=== PATIENT | female | born 1955 | race Two or more races ===

== ENCOUNTER → 2023-05-29 | Outpatient (CLI) | payer OTHER ==
[2023-05-29 14:40] LABS: Basophils # (auto) 0 10 ^3/uL (0-0.2); Basophils % (auto) 0.7 % (0.0-2.0); Eosinophils # (auto) 0.1 10 ^3/uL (0-0.8); Eosinophils % (auto) 1.5 % (0.0-7.0); Hematocrit 42.2 % (36.0-46.0); Hemoglobin 13.8 g/dL (12.2-16.2); Lymphocytes % (auto) 22.8 % (10.0-50.0); Mean Corpuscular Hemoglobin 28.7 pg (28.0-32.0); Mean Corpuscular Hgb Conc. 32.8 g/dL (32.0-36.0); Mean Corpuscular Volume 87.5 fL (80.0-100.0); Monocytes # (auto) 0.4 10 ^3/uL (0-1.3); Monocytes % (auto) 8.3 % (0.0-12.0); Neutrophils # (auto) 2.9 10 ^3/uL (1.6-8.6); Neutrophils % (auto) 66.7 % (37.0-80.0); Nucleated Red Blood Cells % 0.1 %; Red Blood Cells 4.82 10^6/uL (4.0-5.20); Red Cell Distribution Width 14.2 % (11.8-14.3); White Blood Cell 4.3 10^3/uL (4.4-10.8)
[2023-05-29 15:12] LABS: Urine Bacteria FEW /hpf (None Seen); Urine Blood Negative /uL (Negative); Urine Clarity Clear (Clear); Urine Color Yellow (Yellow); Urine Mucus FEW (None Seen); Urine Protein, UAD Negative (Negative); Urine Specific Gravity 1.008 (1.001-1.035); Urine Urobilinogen Normal (Negative); Urine WBC 1 /hpf (0 - 5)
[2023-05-29 15:29] LABS: Alanine Aminotransferase 16 U/L (7-40); Albumin 4.4 g/dL (3.2-4.8); Alkaline Phosphatase 76 U/L (46-116); Anion Gap 7 (5-15); Aspartate Aminotransferase 17 U/L (13-40); BUN/Creatinine Ratio 7.2 (10.0-20.0); Blood Urea Nitrogen 7 mg/dL (9-23); Calcium 9.8 mg/dL (8.5-10.1); Carbon Dioxide 26 mmol/L (20-30); Chloride 109 mmol/L (98-107); Glucose 82 mg/dL (74-106); LDL Cholesterol 111 mg/dL (< 100); Potassium 3.8 mmol/L (3.5-5.1); Sodium 142 mmol/L (136-145); Triglycerides 128 mg/dL (< 150)
[2023-05-29 15:30] LABS: Bilirubin, Total 0.8 mg/dL (0.2-1.0); Cholesterol 186 mg/dL (< 200); HDL Cholesterol 58 mg/dL (40-59); Total Protein 6.6 g/dL (5.7-8.2)
[2023-05-29 15:32] LABS: Folate (Folic Acid) 19.54 ng/mL (>5.38)
[2023-05-29 16:37] LABS: Uric Acid 5.7 mg/dL (3.1-7.8)
== END | disposition home or self-care (01) ==
LOC: LAB 14:18
PROVIDERS: ATTEND Internal Medicine
DX: E61.2 Magnesium deficiency (principal); R94.6 Abnormal results of thyroid function studies; R82.998 Other abnormal findings in urine; E55.9 Vitamin D deficiency, unspecified; D51.9 Vitamin B12 deficiency anemia, unspecified; R82.79 Other abnormal findings on microbiological examination of urine; E79.0 Hyperuricemia without signs of inflammatory arthritis and tophaceous disease; R78.89 Finding of other specified substances, not normally found in blood; R68.89 Other general symptoms and signs; E78.49 Other hyperlipidemia; R73.09 Other abnormal glucose
CPT/HCPCS: 36415; 80053; 80061; 81001; 82306; 82607; 82746; 83036; 84443; 84550; 85025; 87086

== ENCOUNTER → 2023-09-05 | Outpatient (CLI) | payer OTHER ==
[2023-09-05 15:01] LABS: Urine Bacteria None Seen /hpf (None Seen)
[2023-09-05 15:08] LABS: Basophils # (auto) 0 10 ^3/uL (0-0.2); Basophils % (auto) 0.7 % (0.0-2.0); Eosinophils # (auto) 0.1 10 ^3/uL (0-0.8); Eosinophils % (auto) 1.5 % (0.0-7.0); Hematocrit 45.1 % (36.0-46.0); Hemoglobin 14.8 g/dL (12.2-16.2); Lymphocytes # (auto) 1.4 10 ^3/uL (0.4-5.4); Lymphocytes % (auto) 23.5 % (10.0-50.0); Mean Corpuscular Hemoglobin 28.6 pg (28.0-32.0); Mean Corpuscular Hgb Conc. 32.7 g/dL (32.0-36.0); Mean Corpuscular Volume 87.2 fL (80.0-100.0); Monocytes # (auto) 0.5 10 ^3/uL (0-1.3); Monocytes % (auto) 7.8 % (0.0-12.0); Neutrophils # (auto) 3.9 10 ^3/uL (1.6-8.6); Neutrophils % (auto) 66.5 % (37.0-80.0); Nucleated Red Blood Cells % 0.1 %; Red Blood Cells 5.17 10^6/uL (4.0-5.20); Red Cell Distribution Width 14.9 % (11.8-14.3); White Blood Cell 5.8 10^3/uL (4.4-10.8)
[2023-09-05 15:28] LABS: Urine Blood Negative /uL (Negative); Urine Clarity Clear (Clear); Urine Color Yellow (Yellow); Urine Mucus FEW (None Seen); Urine Protein, UAD Negative (Negative); Urine Specific Gravity 1.026 (1.001-1.035); Urine Urobilinogen Normal (Negative); Urine WBC 5 /hpf (0 - 5)
[2023-09-05 16:09] LABS: Alanine Aminotransferase 24 U/L (7-40); Albumin 4.8 g/dL (3.2-4.8); Alkaline Phosphatase 81 U/L (46-116); Anion Gap 5 (5-15); Aspartate Aminotransferase 21 U/L (13-40); Bilirubin, Total 0.8 mg/dL (0.2-1.0); Blood Urea Nitrogen 14 mg/dL (9-23); Carbon Dioxide 27 mmol/L (20-30); Chloride 106 mmol/L (98-107); Cholesterol 233 mg/dL (< 200); Glucose 93 mg/dL (74-106); HDL Cholesterol 63 mg/dL (40-59); LDL Cholesterol 135 mg/dL (< 100); Potassium 3.9 mmol/L (3.5-5.1); Sodium 138 mmol/L (136-145); Total Protein 7.1 g/dL (5.7-8.2); Triglycerides 184 mg/dL (< 150)
[2023-09-05 16:13] LABS: Folate (Folic Acid) 17.94 ng/mL (>5.38)
[2023-09-05 16:40] LABS: Uric Acid 6.1 mg/dL (3.1-7.8)
== END | disposition home or self-care (01) ==
LOC: LAB 14:51
PROVIDERS: ATTEND Internal Medicine
DX: E61.2 Magnesium deficiency (principal); E79.0 Hyperuricemia without signs of inflammatory arthritis and tophaceous disease; D51.9 Vitamin B12 deficiency anemia, unspecified; R82.90 Unspecified abnormal findings in urine; E85.9 Amyloidosis, unspecified; E78.9 Disorder of lipoprotein metabolism, unspecified; R68.89 Other general symptoms and signs; R73.09 Other abnormal glucose; E55.9 Vitamin D deficiency, unspecified; R94.6 Abnormal results of thyroid function studies; R82.991 Hypocitraturia; R82.79 Other abnormal findings on microbiological examination of urine
CPT/HCPCS: 36415; 80053; 80061; 81001; 82306; 82607; 82746; 83036; 84443; 84550; 85025; 87086

== ENCOUNTER → 2024-03-30 | Outpatient (CLI) | payer OTHER ==
[2024-03-30 13:51] LABS: Urine Bacteria None Seen /hpf (None Seen)
[2024-03-30 14:05] LABS: Urine Blood Negative /uL (Negative); Urine Clarity Clear (Clear); Urine Color Yellow (Yellow); Urine Protein, UAD Negative (Negative); Urine Urobilinogen Normal (Negative); Urine WBC 1 /hpf (0 - 5)
[2024-03-30 14:16] LABS: Basophils # (auto) 0 10 ^3/uL (0-0.2); Basophils % (auto) 0.7 % (0.0-2.0); Eosinophils # (auto) 0.1 10 ^3/uL (0-0.8); Eosinophils % (auto) 2.7 % (0.0-7.0); Hematocrit 39.8 % (36.0-46.0); Hemoglobin 13.3 g/dL (12.2-16.2); Lymphocytes # (auto) 1.4 10 ^3/uL (0.4-5.4); Lymphocytes % (auto) 37.6 % (10.0-50.0); Mean Corpuscular Hemoglobin 28.1 pg (28.0-32.0); Mean Corpuscular Hgb Conc. 33.4 g/dL (32.0-36.0); Monocytes # (auto) 0.4 10 ^3/uL (0-1.3); Monocytes % (auto) 10.3 % (0.0-12.0); Neutrophils # (auto) 1.8 10 ^3/uL (1.6-8.6); Neutrophils % (auto) 48.7 % (37.0-80.0); Nucleated Red Blood Cells % 0.1 %; Platelet Count (auto) 219 10^3/uL (140-450); Red Blood Cells 4.74 10^6/uL (4.0-5.20); Red Cell Distribution Width 13.5 % (11.8-14.3); White Blood Cell 3.7 10^3/uL (4.4-10.8)
[2024-03-30 14:42] LABS: Alanine Aminotransferase 30 U/L (7-40); Albumin 4.4 g/dL (3.2-4.8); Anion Gap 8 (5-15); Aspartate Aminotransferase 24 U/L (13-40); BUN/Creatinine Ratio 11.1 (10.0-20.0); Blood Urea Nitrogen 11 mg/dL (9-23); Carbon Dioxide 25 mmol/L (20-31); Chloride 107 mmol/L (98-107); Cholesterol 200 mg/dL (< 200); Glucose 84 mg/dL (74-106); Potassium 3.9 mmol/L (3.5-5.1); Sodium 140 mmol/L (136-145); Triglycerides 118 mg/dL (< 150)
[2024-03-30 14:43] LABS: Bilirubin, Total 0.7 mg/dL (0.2-1.0); Total Protein 6.5 g/dL (5.7-8.2)
[2024-03-30 14:45] LABS: Folate (Folic Acid) 13.2 ng/mL (>5.38)
[2024-03-30 14:47] LABS: HDL Cholesterol 64 mg/dL (40-59); LDL Cholesterol 118 mg/dL (< 100)
[2024-03-30 14:57] LABS: Uric Acid 5.6 mg/dL (3.1-7.8)
[2024-03-30 14:58] LABS: Alkaline Phosphatase 84 U/L (46-116)
== END | disposition home or self-care (01) ==
LOC: LAB 13:36
PROVIDERS: ATTEND Internal Medicine
DX: E79.0 Hyperuricemia without signs of inflammatory arthritis and tophaceous disease (principal); R68.89 Other general symptoms and signs; R73.09 Other abnormal glucose; E61.2 Magnesium deficiency; E85.9 Amyloidosis, unspecified; R82.90 Unspecified abnormal findings in urine; D51.9 Vitamin B12 deficiency anemia, unspecified; R78.89 Finding of other specified substances, not normally found in blood
CPT/HCPCS: 36415; 80053; 80061; 81001; 82306; 82607; 82746; 83036; 84443; 84550; 85025; 87086

== ENCOUNTER 2024-07-29 04:16 | Inpatient (IN) | payer OTHER, MEDICAID ==
[2024-07-29] VITALS (9 sets, daily range): BP systolic 99–149; BP diastolic 60–80; PULSE 76–88; RESP 16–18; TEMP 97.5–98; O2SAT 95–100
[~2024-07-29] VITALS: Ht 167.6 cm; Wt 90.9 kg
--- NOTE | 2024-07-29 05:05 | DVHHP2 ---
History of Present Illness Reason for Visit: Chest pain History of Present Illness 68-year-old female transferred from [facility] for continuity of care and disposition. Patient presented to outside facility with complaints of a three-week history of shortness for breath and chest pressure that has been worsening over the past three days. On arrival patient was noted to be slightly tachycardic in the 110s. No complaints of nausea or vomiting. No GI or symptoms. Past Medical History Hypertension Past Surgical History Family History Noncontributory Smoke: <1 pack per day ALCOHOL: occassional Drugs: None Lives: with Family Review of Systems Review of Systems Review of systems are currently negative otherwise addressed in HPI. Allergies: Coded Allergies: NO KNOWN ALLERGIES (Unverified , 07/29/24) Exam Exam Gen: 68-year-old female in mild distress Skin: Warm, dry, normal color and texture, no rash. HEENT: Normocephalic atraumatic, mucous membranes moist and pink. Neck: Cervical and supraclavicular nodes normal without enlargement, trachea is midline, thyroid gland is normal without masses. Pulmonary: Clear to auscultation and percussion bilaterally. Cardiac: Regular rate and rhythm. No murmur Abdomen: Soft, nontender, nondistended, bowel sounds present all 4 quadrants, no guarding, no rigidity, no organomegaly. Extremities: No cyanosis, clubbing, no edema Neuro: Cranial nerves II through XII grossly intact, normal affect and speech, n o focal motor deficits. Assessment/Plan Assessment/Plan Assessment Hypertension Active smoker Mild anemia Chest pain rule out ACS Plan Admit the patient to telemetry to the hospitalist ACS protocol Resume home medications Blood work and diagnostics pending Continue treatment per orders. Plan discussed with: Patient Date of Service: Jul 29, 2024 Billing Provider: SMITHA LOBO Common Visit Codes: [id number] INP/OBS CARE (HIGH) SMITHA LOBO Jul 29, 2024 05:05
[2024-07-29] MEDS ORDERED: MORPHINE SULFATE INJ 2 MG/ml SYRG IV PRN (05:15)
[2024-07-29] MEDS ORDERED: ONDANSETRON HCL 4 MG/2 ML VIAL IV PRN (05:15)
[2024-07-29] MEDS ORDERED: ACETAMINOPHEN 325 MG TAB PO PRN (05:15)
[2024-07-29] MEDS ORDERED: NITROGLYCERIN 0.4 MG SL TAB SL PRN (05:15)
[2024-07-29 06:55] LABS: Basophils # (auto) 0 10 ^3/uL (0-0.2); Eosinophils # (auto) 0.1 10 ^3/uL (0-0.8); Lymphocytes # (auto) 1.6 10 ^3/uL (0.4-5.4); Lymphocytes % (auto) 41.6 % (10.0-50.0); Monocytes # (auto) 0.3 10 ^3/uL (0-1.3); Neutrophils # (auto) 1.8 10 ^3/uL (1.6-8.6); White Blood Cell 3.8 10^3/uL (4.4-10.8)
[2024-07-29 06:58] LABS: Basophils % (auto) 0.7 % (0.0-2.0); Eosinophils % (auto) 2.6 % (0.0-7.0); Hematocrit 23.4 % (36.0-46.0); Hemoglobin 7.3 g/dL (12.2-16.2); Mean Corpuscular Hemoglobin 22.1 pg (28.0-32.0); Mean Corpuscular Hgb Conc. 31.1 g/dL (32.0-36.0); Mean Corpuscular Volume 70.9 fL (80.0-100.0); Monocytes % (auto) 8.2 % (0.0-12.0); Neutrophils % (auto) 46.9 % (37.0-80.0); Platelet Count (auto) 359 10^3/uL (140-450); Red Cell Distribution Width 16.1 % (11.8-14.3)
[2024-07-29 07:05] LABS: % Iron Saturation 2.1 % (15-50)
[2024-07-29 07:52] LABS: Alanine Aminotransferase 10 U/L (7-40); Albumin 4.2 g/dL (3.2-4.8); Alkaline Phosphatase 68 U/L (46-116); Anion Gap 11 (5-15); BUN/Creatinine Ratio 13.7 (10.0-20.0); Bilirubin, Total 0.5 mg/dL (0.2-1.0); Blood Urea Nitrogen 13 mg/dL (9-23); Calcium 9.5 mg/dL (8.7-10.4); Carbon Dioxide 21 mmol/L (20-31); Glucose 89 mg/dL (74-106); Potassium 3.5 mmol/L (3.5-5.1); Sodium 141 mmol/L (136-145); Total Protein 6.3 g/dL (5.7-8.2)
[2024-07-29 07:53] LABS: Aspartate Aminotransferase 9 U/L (13-40); Chloride 109 mmol/L (98-107)
--- NOTE | 2024-07-29 09:12 | DVH ---
EXAM: XY CHEST XRAY 1 VIEW Indication: chest pain Technique: Single frontal view of the chest was obtained Comparison: None FINDINGS: Lines and Tubes: None Lungs: No focal consolidation. Pleura: No effusion. No pneumothorax. Cardiomediastinal contours: Unremarkable Bones: No acute osseous abnormality. IMPRESSION: No acute cardiopulmonary disease.
[2024-07-29] MEDS: ENOXAPARIN SOD 40 MG/0.4 ML SYRINGE SC SCH (10:32)
[2024-07-29] MEDS: LISINOPRIL 20 MG TAB PO SCH (10:33)
--- NOTE | 2024-07-29 10:33 | ECG ---
[facility] Test Date: 2024-07-29 Test Time: 05:58:27 Pat Name: MARCELLA MENON Department: Respiratoy Room: 0222T B Gender: F Pricing Lead: TEE : 1955 Requested By: SMITHA LOBO Order Number: [id number] Reading MD: Live Garces Measurements Intervals [place] Rate: 80 P: 57 WA: 125 QRS: 29 QRSD: 85 T: 64 QT: 410 QTc: 473 Interpretive Statements Sinus rhythm Abnormal R-wave progression, early transition Borderline repolarization abnormality Electronically Signed On 07-29-2024 20:31:11 PDT by Live Garces Please click the below link to view image of tracing.
[2024-07-29] MEDS: hydroCHLOROthiazide 25 MG TAB PO SCH (10:34)
[2024-07-29] MEDS: ASPirin 81 mg TAB PO SCH (10:34)
[2024-07-29] MEDS: IOHEXOL 350 MG/ML 100ML IJ ONE (10:35)
--- NOTE | 2024-07-29 10:44 | DVHPNRES ---
Progress Note Date Seen: Jul 29, 2024 Resident Creating Document: LEIA SPEARS RESIDENT Has the PT tested + for MRSA If YES, has PT been informed?: No Medical Necessity Reason Pt with a Central, PICC or Fol: No Subjective Review of Systems This is a 68-year-old female with past medical history of hypertension who presented to the ED transferred from [facility] for continuity of care and disposition. The patient was reporting shortness of breath with minimal exertion that has been going on for the past three weeks associated with the chest pressure. The patient denied fever/chills, night sweats, abdominal tenderness or any other associated symptoms at this time. Upon admission, initial labs showed a hemoglobin of 7.3, D-dimer was slightly elevated at 1.09, troponins came back negative and EKG showed sinus rhythm with non specific ST depressions on V4-V5. Initial chest x-ray show mild opacity in the left lung which could be due to poor penetration were otherwise looks clear bilaterally. Patient was admitted for further assessment and management of possible ACS. Patient seen and examined at bedside. Patient is alert and oriented in person, place and time. Patient still reports mild shortness of breath on exertion but denies chest pain at this time or any other symptoms. Upon my examination, bilateral lung sounds grossly clear, there is no peripheral edema in the lower extremities. We ordered CT angio of the chest which came back positive for pulmonary embolism on the right lower lobe segmental and subsegmental branches. patient was also sent for cardiolyte stress test pending results. Patient was started on anticoagulation. We will continue lisinopril 20 mg daily, hydrochlorothiazide 25 mg daily and aspirin 81 mg daily. We will follow-up closely with Cardiolite stress test results. ROS Constitutional: Denies weight loss, fever and chills. HEENT: Denies changes in vision and hearing. Respiratory: Reports shortness of breath on exertion. Cardiovascular: Denies chest discomfort or palpitations GI: Denies abdominal pain, nausea, vomiting and diarrhea. : Denies dysuria and urinary frequency. Musculoskeletal: Denies myalgias and joint pain Skin: Denies rash and pruritus. Neurological: Denies dizziness, headache, vision or hearing problems Objective vital signs Vital Sign Date Time Temp Pulse Resp B/P (MAP) Pulse Ox O2 Delivery O2 Flow Rate FiO2 07/29/24 10:34 140/66 07/29/24 08:33 97.5 78 17 100 97.5 07/29/24 04:54 Room Air* 0 21 Total Intake and Output 07/28/24 07/28/24 07/29/24 15:00 23:00 07:00 Intake Total 0 ml Output Total 0 ml Balance 0 ml medications Current Medications Medications Dose Ordered Sig/Zac Route Start Time Stop Time Status Last Admin Dose Admin Lisinopril 20 mg DAILY PO 07/29/24 10:00 07/29/24 10:33 20 MG Hydrochlorothiazide 25 mg DAILY PO 07/29/24 10:00 07/29/24 10:34 25 MG Aspirin 81 mg DAILY PO 07/29/24 10:00 07/29/24 10:34 81 MG Ondansetron HCl 4 mg Q4HP PRN IV 07/29/24 05:15 Enoxaparin Sodium 40 mg DAILY SC 07/29/24 10:00 07/29/24 10:32 40 MG Acetaminophen 650 mg Q6HP PRN PO 07/29/24 05:15 Nitroglycerin 0.4 mg Q5MINP PRN SL 07/29/24 05:15 Morphine Sulfate 2 mg Q30M PRN IV 07/29/24 05:15 Examination Physical Examination General: Patient alert and oriented in person, place and time. Patient following commands. HEENT: Normocephalic, atraumatic, moist mucous membranes Respiratory/pulmonary: Clear lungs bilaterally, vesicular murmurs present in almost all lung balderas, no associated crackles or wheezes. Cardiovascular: Normal heart sounds S1 and S2 with no associated murmurs Abdomen: Abdomen nondistended, there is no pain to palpation in any of the abdominal quadrants, no palpable masses. Extremities: There is no peripheral edema present at the lower extremities. Peripheral Pulses: 3+ Radial (R). 3+ Radial (L). 3+ Dorsalis pedis (R). 3+ Dorsalis pedis(L) Skin: No rashes or pruritus, there is no sacral edema present at this time. Neurological: Intact cranial nerves with no focal neurologic deficits laboratory and microbiology Laboratory Tests 07/29/24 06:07 Test 07/29/24 06:07 Range/Units Serum Glucose 89 74-106 mg/dL Problem List/Assessment/Plan Problem List/Assessment/Plan Assessment/Plan Acute hypoxic respiratory failure likely due to segmental/subsegmental pulmonary embolism Acute chest pain R/O ACS Ruled out systolic heart failure -initial chest x-ray showed mild opacities in the left lung base may be due to poor penetration but otherwise grossly clean bilaterally -Echocardiogram showed an LVEF of 70% -Elevated D-Dimer 1.09 -EKG showed sinus rhythm with nonspecific ST depression in V4-V5 -troponins came back negative -CT angio of the chest showed feeling defects on the right lower lobe segmental and subsegmental branches consistent with PE. No right ventricular strain -start therapeutic enoxaparin -patient underwent Cardiolite stress test. Pending results -monitor saturation closely Acute on chronic hypochromic, microcytic anemia -ordered iron panel and ferritin which came back low -start ferrous sulfate 325 mg daily -start docusate 100 mg b.i.d. to prevent constipation -monitor hemoglobin and hematocrit Primary hypertension -start lisinopril 20 mg daily -start hydrochlorothiazide 25 mg daily -monitor blood pressure Active smoker -[employer] Inspector on smoking cessation Goals of care discussed with the patient at bedside for >25min, FULL CODE Plan discussed with Dr. Davila Plan discussed with: Patient My Orders My Orders Orders - LEIA SPEARS Procedure Category Date Status Time Ferritin LAB 07/29/24 In Process 10:13 Respiratory Culture STACI 07/29/24 Logged W/ Gs 10:[address] 07/29/24 Logged Contrast 10:16 B-Type Natriuretic LAB 07/29/24 In Process Peptide 10:19 Hemoglobin A1c LAB 07/29/24 In Process 10:19 Lipid Panel LAB 07/29/24 In Process 10:19 Urinalysis LAB 07/29/24 Logged 10:20 Drug Screen LAB 07/29/24 Logged 10:20 Communication Order ORDERS 07/29/24 Transmitted 10:20 Furosemide Injection PHA 07/30/24 Logged (Lasix Injection) 10:00 Date of Service: Jul 29, 2024 Billing Provider: SANG DAVILA MD Common Visit Codes: [id number] INP/OBS CARE(HIGH) LEIA SPEARS RESIDENT Jul 29, 2024 10:44 SANG DAVILA MD Jul 29, 2024 18:20
--- NOTE | 2024-07-29 11:27 | DVH ---
CTA Chest with intravenous contrast INDICATION: R/O PE and ongoing opacities on left lung COMPARISON: None TECHNIQUE: Multidetector spiral CTA of the chest was performed of the chest with intravenous contrast . PULMONARY ANGIOGRAPHY PROTOCOL was utilized using a bolus-tracking technique centered on the main p ulmonary artery. Axial, coronal and sagittal multiplanar and MIP reformats were performed. CONTRAST: Type of contrast: Omni 350 Contrast injected: 70 ml Radiation dose : Chest: CTDI volume is 8.88 mGy. Dose-length product is 923.79 mGy*cm The dose indicators for CT are the volume computed Tomography (CT) dose Index (CTDIvol) and the dose Length product (DLP), and are measured in units of mGy and mGy-cm, respectively. These indicators are not patient dose, but values generated from the CT scanner acquisition factors. The report includes radiation exposure data for exposures received during this examination. Findings: Pulmonary artery: There are filling defects in right lower lobe segmental and subsegmental branches. Small clot burden . No evidence of right heart strain. Lower neck: Normal thyroid. Lungs: No focal consolidation, pleural effusion or pneumothorax. Heart/Vascular Structures: Normal heart size. No pericardial effusion. Lymph Nodes: Subcentimeter mediastinal lymph nodes. Pleura: No pleural effusion or significant pneumothorax. Musculoskeletal: No acute osseous abnormality. Soft tissues: Normal. Upper abdomen: Moderate size sliding-type hiatal hernia. Multiple hepatic hypodensities measuring up to 16 mm. IMPRESSION: 1. Filling defects in right lower lobe segmental and subsegmental branches. Small clot burden. No e vidence of right heart strain. 2. No suspicious pulmonary nodule or consolidation. Moderate size sliding-type hiatal hernia. 3. Multiple hypodensities in the liver some of which are not definitely cysts. Recommend further eval uation with MRI of the abdomen with contrast. Critical Result: Pumonary Emboli Findings discussed with Nurse Shirley taking care of the patient at 07/29/2024 11:14 AM, and acknowledg ed receipt and understanding of the findings. HS:Y
[2024-07-29] MEDS: REGADENOSON 0.4 MG/5 ML SYRG IV ONE ×2 (12:13→12:20)
[2024-07-29] MEDS: SODIUM CHLORIDE 0.9% 500 ML IV ONE (13:30)
--- NOTE | 2024-07-29 13:56 | DVHSR ---
APPROVED REPORT EXAM: Two-dimensional and M-mode echocardiogram with Doppler and color Doppler. Blood Pressure: 149/80 mmHg INDICATION Chest Pain RISK FACTORS Height: , Weight: DIMENSIONS LVDd3.8 (3.8-5.7cm)LA (2D)4.7 (1.9-4.0cm)Aortic Root3.0 (2.0-3.7cm) LVDs2.3 (2.5-4.0cm)LA (MM) (1.9-4.0cm)Aortic Cusp Exc1.4 (1.5-2.0cm) EF (%) 60.0 (55-70%)Rt. Atrium3.8 (1.9-4.0cm)Asc. Aorta3.2 cm IVSd1.0 (0.7-1.1cm)RV (D) (1.8-2.4cm) PWd1.0 (0.7-1.1cm) Mitral Valve MitralMitral Stenosis E wave0.88m/sMV Mean GR.mmHg A wave0.84m/sMV Peak GR.mmHg E/A ratio1.02D MVAcm2 DECEL [id number] 1/2 Timems Aortic Valve Aortic ValveAortic Stenosis V11.16m/Leigh Mean GR.5mmHg V21.48m/Leigh Peak GR.9mmHg LVOT Diameter1.8 (1.8-2.4cm)Doppler AVA1.99cm2 Pulmonic Valve V20.81m/s Tricuspid Valve TR Velocity2.94m/s [id number] Conclusion lvef 70% moderate to severe LVH normal rv function no severe valve abnormalities noted
[2024-07-29 15:07] LABS: Urine Bacteria None Seen /hpf (None Seen)
[2024-07-29 15:21] LABS: Urine Blood Negative /uL (Negative); Urine Clarity Clear (Clear); Urine Color Light-Yellow (Yellow); Urine Protein, UAD Negative (Negative); Urine Specific Gravity 1.044 (1.001-1.035); Urine Squamous Epithelial Cell FEW /hpf (<5); Urine Urobilinogen Normal (Negative); Urine WBC < 1 /HPF (0-5)
[2024-07-29 15:40] LABS: Amphetamine Screen, Urine Pos (NEGATIVE); Barbiturate Scree,Urine Neg (NEGATIVE); Benzodiazephine Screen, Urine Neg (NEGATIVE); Cannabinoid Screen, Urine Pos (NEGATIVE); Cocaine Screen, Urine Neg (NEGATIVE); Opiate Scree,Urine Neg (NEGATIVE); Phencyclidine Screen, Urine Neg (NEGATIVE)
--- NOTE | 2024-07-29 16:14 | DVHSR ---
APPROVED REPORT Exam: Nuclear Stress Test BMI: 0 Stress Test Details HR Max Heart Rate (APMHR): 154.509768 bpm Target HR (85% APMHR): 130.223979 bpm BP ECG Stress ECG Conclusion lvef 70% normal perfsuion scan ecg shows SR , and non specific ST changes NM EXAM: Myocardial Perfusion REST/STRESS Imaging Protocol: Rest Tc-99m/Stress Tc-99m 1 day Resting Data Rest SPECT myocardial perfusion imaging was performed in supine position 60 minutes following the int ravenous injection of 12 mCi of Tc-99m Sestamibi. Time of rest injection: 1150 Time of rest imagin Administration Route: IV Administration Site: Right Arm Pharmacologic Stress Pharmacologic stress test was performed by injecting Regadenoson 0.4 mg IV push followed by the intra venous injection of 34 mCi of Tc-99m Sestamibi. Time of stress injection: 1220 Time of stress imagin Administration Route: IV Administration Site: Right Arm Gated Stress SPECT was performed 60 minutes after stress injection. The images were gated to evaluate regional wall motion and calculate left ventricular ejection fracti on. Stress only was performed in the Supine position. Nuclear Conclusion Nuclear Findings: negative for ischemia lvef 70% normal perfsuion scan ecg shows SR , and non specific ST changes
[2024-07-29 16:46] LABS: Cholesterol 160 mg/dL (< 200); Triglycerides 82 mg/dL (< 150)
[2024-07-29 16:47] LABS: HDL Cholesterol 52 mg/dL (40-59); LDL Cholesterol 99 mg/dL (< 100)
[2024-07-29] MEDS: FERROUS SULFATE 325mg EC TAB PO SCH (18:02)
[2024-07-29] MEDS: ENOXAPARIN SOD 100 MG/1 ML SYRINGE SC ONE (18:13)
[2024-07-29] MEDS ORDERED: LACTULOSE 20Gm/30ML SOLN PO ONE (18:30)
--- NOTE | 2024-07-29 18:30 | DVH ---
BILATERAL LOWER EXTREMITY VENOUS DOPPLER ULTRASOUND CLINICAL HISTORY: Swelling and pain. TECHNIQUE: Grayscale ultrasound with compression, color Doppler flow imaging with pulsed duplex sonog richy of the bilateral lower extremity deep venous system from the common femoral veins through the p opliteal veins is performed. COMPARISON: None FINDINGS: Right common femoral vein: Negative. Right greater saphenous vein: Negative. Right deep femoral vein: Negative. Right femoral vein: Negative. Right popliteal vein: Negative. Left common femoral vein: Negative. Left greater saphenous vein: Negative. Left deep femoral vein: Negative. Left femoral vein: Negative. Left popliteal vein: Negative. Other: Visualized bilateral popliteal trifurcation and posterior tibial veins demonstrate color flow. IMPRESSION: No sonographic evidence of deep venous thrombosis in either lower extremity at this time. HS:Y swelling and pain.
--- NOTE | 2024-07-29 18:38 | DVHINCON2 ---
Date Seen: Jul 29, 2024 Referring Physician BRAYDEN Durán Reason for Consultation Chest pain History of Present Illness This is a 68-year-old female patient who presents to emergency room with chief complaint of worsening shortness of breath for approximately three months. The patient initially went to [facility] and was transferred to this facility due to insurance reasons. Her symptoms include shortness of breath and dizziness in which she states she has noted for the past few months but decided to come in for further evaluation given that symptoms have been progressively worsening. Cardiology has now been consulted for complaints of chest pain. The patient does report symptoms of chest pressure upon exertion. She describes her symptoms as provoked with exertion, pressure-like in nature, midsternal and nonradiating. Initial twelve lead electrocardiogram reveals normal sinus rhythm with nonspecific ST segment changes to anterolateral leads. Initial troponin level was negative. Significant past medical history includes hypertension, dyslipidemia, type 2 diabetes mellitus, tobacco use, and obesity. Past Medical History Past medical history reviewed. No other significant than mentioned above. Past Surgical History Family History Family history reviewed. Social History Patient denies any illicit drug use, toxicology report positive for cannabinoids and amphetamines Patient has a 12 pack-year history, smokes approximately half a pack per day Denies any alcohol use Allergies: Coded Allergies: NO KNOWN ALLERGIES (Unverified , 07/29/24) Home Meds Home medications reviewed. Current Medications Current Medications Medications (Trade) Dose Ordered Sig/Zac Route PRN Reason Start Time Stop Time Status Last Admin Lisinopril (Zestril Tablet) 20 mg DAILY PO 07/29/24 10:00 07/29/24 10:33 Hydrochlorothiazide (hydroCHLOROthiazide TABLET) 25 mg DAILY PO 07/29/24 10:00 07/29/24 10:34 Aspirin 81 mg DAILY PO 07/29/24 10:00 07/29/24 10:34 Ondansetron HCl (Zofran) 4 mg Q4HP PRN IV NAUSEA / VOMITING 07/29/24 05:15 Enoxaparin Sodium (Lovenox) 40 mg DAILY SC 07/29/24 10:00 07/29/24 15:16 DC 07/29/24 10:32 Acetaminophen (Tylenol Tablet) 650 mg Q6HP PRN PO PAIN SCALE 1-3 OR TEMP>100.4 07/29/24 05:15 Nitroglycerin (Ntrostat Sublingual) 0.4 mg Q5MINP PRN SL FOR CHEST PAIN 07/29/24 05:15 Morphine Sulfate 2 mg Q30M PRN IV FOR CHEST PAIN 07/29/24 05:15 Furosemide (Lasix Injection) 20 mg DAILY IV 07/30/24 10:00 07/29/24 15:27 DC Enoxaparin Sodium (Lovenox) 90 mg Q12H SC 07/30/24 06:00 Ferrous Sulfate 325 mg DAILY PO 07/29/24 15:30 07/29/24 18:31 DC 07/29/24 18:02 Docusate Sodium (Colace Capsule) 100 mg BID PO 07/29/24 22:00 Iron Sucrose 110 ml @ 110 mls/hr DAILY@1200 IV 07/29/24 18:30 08/02/24 12:59 UNV Review of Systems Constitutional: No symptom reported Ears, Nose, & Throat: No symptom reported Eyes: No symptom reported Neurological: No symptoms reported Pulmonary/Respiratory: Shortness of breath Cardiovascular: Chest pressure Gastrointestinal: No symptom reported Genitourinary: No symptom reported Musculoskeletal: No symptom reported Skin: No symptom reported Psychiatric: No symptom reported Endocrine: No symptom reported Hematologic/Lymphatic: No symptom reported Vital Signs Vital Signs Date Time Temp Pulse Resp B/P (MAP) Pulse Ox O2 Delivery O2 Flow Rate FiO2 07/29/24 16:40 97.6 83 18 111/60 (77) 99 97.6 07/29/24 08:00 Room Air* 0 21 Physical Exam General Appearance: Cooperative. Well-developed. Well-nourished. Pulmonary/Respiratory: Clear, bilateral breaths sounds. Cardiovascular/Chest: Regular rate and rhythm. Peripheral Pulses: 2+ Radial (R). 2+ Radial (L). 2+ Pedal (R). 2+ Pedal (L) Abdominal Exam: Normal bowel sounds. Ankle Exam: Negative ankle edema Lower extremities: Negative lower extremity edema Neuro/Mental Status: A/OX4, coherent. Thoughts/Psych: Normal thought pattern. Appropriate mood and affect. Good judgment and insight. Appearance: No acute distress. Skin Exam: Normal inspection. Normal color. Warm and dry. Labs/Diagnostic Data Labs Test 07/29/24 14:52 07/29/24 06:07 Range/Units Urine Color Light-yellow Yellow Urine Clarity Clear Clear Urine pH 6.0 5.0-9.0 Urine Specific Pound 1.044 H 1.001-1.035 Urine Protein Negative Negative Urine Ketones Negative Negative Urine Blood Negative Negative /uL Urine Nitrite Negative Negative Urine Bilirubin Negative Negative Urine Urobilinogen Normal Negative mg/dL Urine Leukocyte Esterase Negative Negative /uL Urine RBC 1 0 - 4 /hpf Urine Microscopic WBC < 1 0-5 /HPF Urine Squamous Epithelial Cells Few <5 /hpf Urine Bacteria None seen None Seen /hpf Urine Glucose Normal Normal mg/dL Urine Opiates Screen Neg NEGATIVE Urine Fentanyl Screen Neg NEGATIVE Urine Barbiturates Screen Neg NEGATIVE Urine Phencyclidine Screen Neg NEGATIVE Urine Amphetamines Screen Pos NEGATIVE Urine Benzodiazepines Screen Neg NEGATIVE Urine Cocaine Screen Neg NEGATIVE Urine Cannabinoids Screen Pos NEGATIVE White Blood Count 3.8 L 4.4-10.8 10^3/uL Red Blood Count 3.30 L 4.0-5.20 10^6/uL Hemoglobin 7.3 L 12.2-16.2 g/dL Hematocrit 23.4 L 36.0-46.0 % Mean Corpuscular Volume 70.9 L 80.0-100.0 fL Mean Corpuscular Hemoglobin 22.1 L 28.0-32.0 pg Mean Corpuscular Hemoglobin Concent 31.1 L 32.0-36.0 g/dL Red Cell Distribution Width 16.1 H 11.8-14.3 % Platelet Count 359 140-450 10^3/uL Mean Platelet Volume 7.1 6.9-10.8 fL Neutrophils (%) (Auto) 46.9 37.0-80.0 % Lymphocytes (%) (Auto) 41.6 10.0-50.0 % Monocytes (%) (Auto) 8.2 0.0-12.0 % Eosinophils (%) (Auto) 2.6 0.0-7.0 % Basophils (%) (Auto) 0.7 0.0-2.0 % Neutrophils # (Auto) 1.8 1.6-8.6 10 ^3/uL Lymphocytes # (Auto) 1.6 0.4-5.4 10 ^3/uL Monocytes # (Auto) 0.3 0-1.3 10 ^3/uL Eosinophils # (Auto) 0.1 0-0.8 10 ^3/uL Basophils # (Auto) 0 0-0.2 10 ^3/uL Nucleated Red Blood Cells 0.0 % D-Dimer, Quantitative 1.09 H 0.0-0.49 mg/L FEU Sodium Level 141 136-145 mmol/L Potassium Level 3.5 3.5-5.1 mmol/L Chloride Level 109 H 98-107 mmol/L Carbon Dioxide Level 21 20-31 mmol/L Anion Gap 11 5-15 Blood Urea Nitrogen 13 9-23 mg/dL Creatinine 0.95 0.550-1.02 mg/dL Glomerular Filtration Rate Calc 66 >90 mL/min BUN/Creatinine Ratio 13.7 10.0-20.0 Serum Glucose 89 74-106 mg/dL Hemoglobin A1c > 14.0 H <5.7 % A1C Calcium Level 9.5 8.7-10.4 mg/dL Iron Level 9 L 50-170 ug/dL Total Iron Binding Capacity 431 H 250-425 ug/dL Percent Iron Saturation 2.1 L 15-50 % Ferritin 2.9 L 10-291 ng/mL Total Bilirubin 0.5 0.2-1.0 mg/dL Aspartate Amino Transferase (AST) 9 L 13-40 U/L Alanine Aminotransferase (ALT) 10 7-40 U/L Alkaline Phosphatase 68 46-116 U/L Troponin I High Sensitivity 4 </=34 ng/L B-Type Natriuretic Peptide 45.12 0-100 pg/mL Total Protein 6.3 5.7-8.2 g/dL Albumin 4.2 3.2-4.8 g/dL Triglycerides Level 82 < 150 mg/dL Cholesterol Level 160 < 200 mg/dL LDL Cholesterol 99 < 100 mg/dL HDL Cholesterol 52 40-59 mg/dL Assessment Chest pain in the setting of pulmonary emboli Hypertension Dyslipidemia Acute anemia Type 2 diabetes mellitus, uncontrolled (Hgb A1c >14.0%) History of Vitamin-D deficiency Tobacco use Polysubstance use Plan/Recommendation We will continue with following plan/recommendations (Dr. Garces): * Transthoracic echocardiogram reveals EF 70% with moderate to severe LVH. No evidence of RV strain * Nuclear stress test negative for ischemia * PESI score: 66 points (Class II- Low risk: 1.7-3.5% 30 day mortality in this group) * Patient on therapeutic Lovenox * Blood pressure control * Cardiac surveillance * Risk factor modifications * Cessation of polysubstance use * Adherence to medications Case discussed with . The patient who came to this facility with chest pain found to have a pulmonary embolism. Primary care team ordered a nuclear stress test which was found to be negative for ischemia. At this time, the patient has a low PESI score and is hemodynamically stable, thrombectomy not indicated at this time. Medical management for pulmonary embolism unless hemodynamic status changes. There is no further inpatient cardiac workup indicated at this time. Rest of care per primary care team. Please reconsult if needed. Thank you for allowing us to care for this patient. Please call with any questions or concerns. Critical care time spent: 44 minutes This medical document was created using an electronic medical record system with voice recognition software and computerized dictation system. Although this document has been carefully reviewed, there might still be some phonetic and typographical errors. Occasional wrong-word or ``sound-alike substitutions may have occurred due to the inherent limitations of voice recognition software. These areas are purely typographical due to imperfections of the software programs and do not reflect any compromise in the patient's medical care. Please read the chart carefully and recognize, using context, where these substitutions have occurred. Plan discussed with: Patient NYHA Physical activity limitations: NA Date of Service: Jul 29, 2024 Billing Provider: ESDRAS BOWER Cardiology Common Codes: [id number] INP/OBS CARE (High) Cardiology Consultation Codes: [id number] CONSULT <45MIN ESDRAS BOWER Jul 29, 2024 18:38
--- NOTE | 2024-07-29 20:08 | DVH ---
INDICATION: liver cyst TECHNIQUE: Multiple real-time sonographic images were obtained of the right upper quadrant. COMPARISON: None FINDINGS: Liver is normal in size measuring 15.4 cm and the echogenicity is within normal limits with no lesion s identified. There is no intrahepatic or extrahepatic ductal dilatation with the common bile duct measuring 6 mm. Gallbladder appears unremarkable with no evidence of stones or wall thickening. Right kidney measures 9.8 cm and appears unremarkable with no hydronephrosis. Pancreas is obscured by overlying bowel gas. IMPRESSION: Unremarkable right upper quadrant sonogram.
--- NOTE | 2024-07-29 20:35 | DVH ---
EXAM: US PELVIC CLINICAL HISTORY: Anemia TECHNIQUE: Transabdominal and transvaginal ultrasound of the pelvis with color Doppler flow as clinic ally indicated. COMPARISON: None Findings: Uterus measures 7.5 x 4.0 x 6.0 cm in size. Multiple masses in the uterine fundus, the largest measur es 3.5 x 3.7 x 2.9 cm. Endometrium not well visualized. Cervix appears grossly unremarkable. Bilateral ovaries not visualized. No free fluid in the cul-de-sac. Impression: 1. Multiple masses in the uterine fundus may reflect uterine fibroids; however, recommend further eliezer luation with contrast-enhanced MRI. 2. Bilateral ovaries not visualized.
[2024-07-29] MEDS: DOCUSATE SOD 100 MG CAP PO SCH (21:59)
[2024-07-30] VITALS (7 sets, daily range): BP systolic 92–135; BP diastolic 47–65; PULSE 80–89; RESP 16–18; TEMP 36.5; O2SAT 98–100
[2024-07-30] MEDS: ENOXAPARIN SOD 100 MG/1 ML SYRINGE SC SCH (05:38)
[2024-07-30 07:08] LABS: Basophils # (auto) 0 10 ^3/uL (0-0.2); Eosinophils # (auto) 0.1 10 ^3/uL (0-0.8); Hemoglobin 7.5 g/dL (12.2-16.2); Lymphocytes # (auto) 1.6 10 ^3/uL (0.4-5.4); Monocytes # (auto) 0.3 10 ^3/uL (0-1.3); Neutrophils # (auto) 1.5 10 ^3/uL (1.6-8.6); White Blood Cell 3.5 10^3/uL (4.4-10.8)
[2024-07-30 07:10] LABS: Chloride 106 mmol/L (98-107); Sodium 139 mmol/L (136-145)
[2024-07-30 07:11] LABS: Anion Gap 9 (5-15); Basophils % (auto) 0.9 % (0.0-2.0); Carbon Dioxide 24 mmol/L (20-31); Eosinophils % (auto) 2.8 % (0.0-7.0); Hematocrit 23.9 % (36.0-46.0); Lymphocytes % (auto) 44.7 % (10.0-50.0); Mean Corpuscular Hemoglobin 21.7 pg (28.0-32.0); Mean Corpuscular Hgb Conc. 31.3 g/dL (32.0-36.0); Mean Corpuscular Volume 69.5 fL (80.0-100.0); Monocytes % (auto) 8.7 % (0.0-12.0); Neutrophils % (auto) 42.9 % (37.0-80.0); Platelet Count (auto) 337 10^3/uL (140-450); Red Blood Cells 3.44 10^6/uL (4.0-5.20); Red Cell Distribution Width 15.9 % (11.8-14.3)
[2024-07-30 07:12] LABS: Calcium 9.7 mg/dL (8.7-10.4); Potassium 3.2 mmol/L (3.5-5.1)
[2024-07-30 07:16] LABS: BUN/Creatinine Ratio 11.7 (10.0-20.0); Blood Urea Nitrogen 12 mg/dL (9-23); Glucose 104 mg/dL (74-106)
[2024-07-30] MEDS ORDERED: FUROSEMIDE 20 MG/2 ML VIAL IV SCH (10:00)
[2024-07-30] MEDS: IRON SUCROSE COMPLEX 110 ML IV SCH (12:25)
--- NOTE | 2024-07-30 14:37 | DVH ---
MRI Abdomen and pelvis, without and with IV Contrast Exam Date: 07/30/2024 12:21 PM Comparison: Ultrasound dated 07/29/2024 History: Liver cysts Technique: Multisequence multiplanar MRI images were obtained of the abomen and pelvis. Findings: Liver: Bilobar hepatic cysts are present measuring up to 1.6 cm. Spleen: Unremarkable. Pancreas: The pancreas is normal in appearance without focal lesions. Gallbladder and ducts: Gallbladder is normal in appearance. The cystic duct, right and left hepatic ducts, common hepatic duct, and common bile ducts are unremarkable. The pancreatic duct is within no rmal limits. Adrenal glands: Unremarkable. Kidneys: Normal enhancement without suspicious lesions or hydronephrosis. Visualized bowel: Moderate hiatal hernia. Vasculature: Unremarkable. Lymphadenopathy: No evidence for lymphadenopathy. Ascites: Absent. Musculoskeletal: Bone marrow signal is normal. Leiomyomatous uterus. Largest fibroid measures 2.6 cm. IMPRESSION: Leiomyomatous uterus.
--- NOTE | 2024-07-30 15:52 | DVHDSRES ---
Discharge Summary Date of Admission Resident Creating Document: LEIA SPEARS RESIDENT Jul 29, 2024 at 04:16 Date of Discharge: Jul 30, 2024 Admitting Diagnosis Acute chest pain associated with mild shortness of breath Wounds: No wounds present at this time. Labs/Diagnostic Data: Laboratory Results Test 07/30/24 06:14 07/29/24 19:53 07/29/24 14:52 07/29/24 06:07 White Blood Count 3.5 10^3/uL (4.4-10.8) Red Blood Count 3.44 10^6/uL (4.0-5.20) Hemoglobin 7.5 g/dL (12.2-16.2) Hematocrit 23.9 % (36.0-46.0) Mean Corpuscular Volume 69.5 fL (80.0-100.0) Mean Corpuscular Hemoglobin 21.7 pg (28.0-32.0) Mean Corpuscular Hemoglobin Concent 31.3 g/dL (32.0-36.0) Red Cell Distribution Width 15.9 % (11.8-14.3) Platelet Count 337 10^3/uL (140-450) Mean Platelet Volume 7.3 fL (6.9-10.8) Neutrophils (%) (Auto) 42.9 % (37.0-80.0) Lymphocytes (%) (Auto) 44.7 % (10.0-50.0) Monocytes (%) (Auto) 8.7 % (0.0-12.0) Eosinophils (%) (Auto) 2.8 % (0.0-7.0) Basophils (%) (Auto) 0.9 % (0.0-2.0) Neutrophils # (Auto) 1.5 10 ^3/uL (1.6-8.6) Lymphocytes # (Auto) 1.6 10 ^3/uL (0.4-5.4) Monocytes # (Auto) 0.3 10 ^3/uL (0-1.3) Eosinophils # (Auto) 0.1 10 ^3/uL (0-0.8) Basophils # (Auto) 0 10 ^3/uL (0-0.2) Nucleated Red Blood Cells 0.0 % Sodium Level 139 mmol/L (136-145) Potassium Level 3.2 mmol/L (3.5-5.1) Chloride Level 106 mmol/L (98-107) Carbon Dioxide Level 24 mmol/L (20-31) Anion Gap 9 (5-15) Blood Urea Nitrogen 12 mg/dL (9-23) Creatinine 1.03 mg/dL (0.550-1.02) Glomerular Filtration Rate Calc 60 mL/min (>90) BUN/Creatinine Ratio 11.7 (10.0-20.0) Serum Glucose 104 mg/dL (74-106) Calcium Level 9.7 mg/dL (8.7-10.4) Urine Color Light-yellow (Yellow) Urine Clarity Clear (Clear) Urine pH 6.0 (5.0-9.0) Urine Specific [place] 1.044 (1.001-1.035) Urine Protein Negative (Negative) Urine Ketones Negative (Negative) Urine Blood Negative /uL (Negative) Urine Nitrite Negative (Negative) Urine Bilirubin Negative (Negative) Urine Urobilinogen Normal mg/dL (Negative) Urine Leukocyte Esterase Negative /uL (Negative) Urine RBC 1 /hpf (0 - 4) Urine Microscopic WBC < 1 /HPF (0-5) Urine Squamous Epithelial Cells Few /hpf (<5) Urine Bacteria None seen /hpf (None Seen) Urine Glucose Normal mg/dL (Normal) Urine Opiates Screen Neg (NEGATIVE) Urine Fentanyl Screen Neg (NEGATIVE) Urine Barbiturates Screen Neg (NEGATIVE) Urine Phencyclidine Screen Neg (NEGATIVE) Urine Amphetamines Screen Pos (NEGATIVE) Urine Benzodiazepines Screen Neg (NEGATIVE) Urine Cocaine Screen Neg (NEGATIVE) Urine Cannabinoids Screen Pos (NEGATIVE) D-Dimer, Quantitative 1.09 mg/L FEU (0.0-0.49) Hemoglobin A1c > 14.0 % A1C (<5.7) Iron Level 9 ug/dL (50-170) Total Iron Binding Capacity 431 ug/dL (250-425) Percent Iron Saturation 2.1 % (15-50) Ferritin 2.9 ng/mL (10-291) Total Bilirubin 0.5 mg/dL (0.2-1.0) Aspartate Amino Transferase (AST) 9 U/L (13-40) Alanine Aminotransferase (ALT) 10 U/L (7-40) Alkaline Phosphatase 68 U/L (46-116) Troponin I High Sensitivity 4 ng/L (</=34) B-Type Natriuretic Peptide 45.12 pg/mL (0-100) Total Protein 6.3 g/dL (5.7-8.2) Albumin 4.2 g/dL (3.2-4.8) Triglycerides Level 82 mg/dL (< 150) Cholesterol Level 160 mg/dL (< 200) LDL Cholesterol 99 mg/dL (< 100) HDL Cholesterol 52 mg/dL (40-59) Carcinoembryonic Antigen 1.58 ng/mL (<=5.0) Other Laboratory Tests 07/30/24 06:14 Brief Hx & Hospital Course: This is a 68-year-old female with past medical history of hypertension who presented to the ED transferred from [facility] for continuity of care and disposition. The patient was reporting shortness of breath with minimal exertion that has been going on for the past three weeks associated with the chest pressure. The patient denied fever/chills, night sweats, abdominal tenderness or any other associated symptoms at this time. Upon admission, initial labs showed a hemoglobin of 7.3, D-dimer was slightly elevated at 1.09, troponins came back negative and EKG showed sinus rhythm with non specific ST depressions on V4-V5. Initial chest x-ray show mild opacity in the left lung which could be due to poor penetration were otherwise looks clear bilaterally. CT angio of the chest showed segmental/subsegmental PE but patient blood pressure is in the normal range and patient is saturating 97% on room air without any respiratory distress. Patient was started on enoxaparin therapeutic dose. Patient was also sent for Cardiolite stress test which showed no acute ischemia at this time. Cardiology was on board and ruled out ACS. Today, patient was seen and examined at bedside. The patient denies chest pain, shortness of breath, fever/chills or any other symptoms. The patient stated feels well overall but sometimes when she walks feels slightly shortness of breaths. We will discharge the patient home on Eliquis 10 mg b.i.d. for seven days and then 5 mg b.i.d. for the next three months. We explained to the patient that needs to have a close follow-up with her PCP and have a long discussion regarding the need of lung live anticoagulation versus 3-6 months. Patient will also be discharged home on lisinopril 20 mg daily and hydrochlorothiazide 12.5 mg daily. For the anemia, the patient will be discharged on iron ferrous sulfate 325 mg daily for 20 days. Patient agrees and understands the plan. ROS Constitutional: Denies weight loss, fever and chills. HEENT: Denies changes in vision and hearing. Respiratory: Denies shortness of breath and cough Cardiovascular: Denies chest discomfort or palpitations GI: Denies abdominal pain, nausea, vomiting and diarrhea. : Denies dysuria and urinary frequency. Musculoskeletal: Denies myalgias and joint pain Skin: Denies rash and pruritus. Neurological: Denies dizziness, headache, vision or hearing problems Physical examination General: Patient alert and oriented in person, place and time. Patient following commands. HEENT: Normocephalic, atraumatic, moist mucous membranes Respiratory/pulmonary: Clear lungs bilaterally, vesicular murmurs present in almost all lung balderas, no associated crackles or wheezes. Cardiovascular: Normal heart sounds S1 and S2 with no associated murmurs Abdomen: Abdomen nondistended, there is no pain to palpation in any of the abdominal quadrants, no palpable masses. Extremities: There is no peripheral edema present at the lower extremities. Peripheral Pulses: 3+ Radial (R). 3+ Radial (L). 3+ Dorsalis pedis (R). 3+ Dorsalis pedis(L) Skin: No rashes or pruritus, there is no sacral edema present at this time. Neurological: Intact cranial nerves with no focal neurologic deficits Consults/Reason for consult Cardiology to r/o ACS Operations or Procedures EXAM: XY CHEST XRAY 1 VIEW Indication: chest pain Technique: Single frontal view of the chest was obtained Comparison: None FINDINGS: Lines and Tubes: None Lungs: No focal consolidation. Pleura: No effusion. No pneumothorax. Cardiomediastinal contours: Unremarkable Bones: No acute osseous abnormality. IMPRESSION: No acute cardiopulmonary disease. CTA Chest with intravenous contrast INDICATION: R/O PE and ongoing opacities on left lung COMPARISON: None TECHNIQUE: Multidetector spiral CTA of the chest was performed of the chest with intravenous contrast. PULMONARY ANGIOGRAPHY PROTOCOL was utilized using a bolus- tracking technique centered on the main pulmonary artery. Axial, coronal and sagittal multiplanar and MIP reformats were performed. CONTRAST: Type of contrast: Omni 350 Contrast injected: 70 ml Radiation dose : Chest: CTDI volume is 8.88 mGy. Dose-length product is 923.79 mGy*cm The dose indicators for CT are the volume computed Tomography (CT) dose Index (CTDIvol) and the dose Length product (DLP), and are measured in units of mGy and mGy-cm, respectively. These indicators are not patient dose, but values generated from the CT scanner acquisition factors. The report includes radiation exposure data for exposures received during this examination. Findings: Pulmonary artery: There are filling defects in right lower lobe segmental and subsegmental branches. Small clot burden. No evidence of right heart strain. Lower neck: Normal thyroid. Lungs: No focal consolidation, pleural effusion or pneumothorax. Heart/Vascular Structures: Normal heart size. No pericardial effusion. Lymph Nodes: Subcentimeter mediastinal lymph nodes. Pleura: No pleural effusion or significant pneumothorax. Musculoskeletal: No acute osseous abnormality. Soft tissues: Normal. Upper abdomen: Moderate size sliding-type hiatal hernia. Multiple hepatic hypodensities measuring up to 16 mm. IMPRESSION: 1. Filling defects in right lower lobe segmental and subsegmental branches. Small clot burden. No evidence of right heart strain. 2. No suspicious pulmonary nodule or consolidation. Moderate size sliding-type hiatal hernia. 3. Multiple hypodensities in the liver some of which are not definitely cysts. Recommend further evaluation with MRI of the abdomen with contrast. Critical Result: Pumonary Emboli Findings discussed with Nurse Shirley taking care of the patient at 07/29/2024 11:14 AM, and acknowledged receipt and understanding of the findings. Exam: Nuclear Stress Test BMI: 0 Stress Test Details HR Max Heart Rate (APMHR): 154.200049 bpm Target HR (85% APMHR): 130.864803 bpm BP ECG Stress ECG Conclusion lvef 70% normal perfsuion scan ecg shows SR , and non specific ST changes NM EXAM: Myocardial Perfusion REST/STRESS Imaging Protocol: Rest Tc-99m/Stress Tc-99m 1 day Resting Data Rest SPECT myocardial perfusion imaging was performed in supine position 60 minutes following the intravenous injection of 12 mCi of Tc-99m Sestamibi. Time of rest injection: 1150 Time of rest imagin Administration Route: IV Administration Site: Right Arm Pharmacologic Stress Pharmacologic stress test was performed by injecting Regadenoson 0.4 mg IV push followed by the intravenous injection of 34 mCi of Tc-99m Sestamibi. Time of stress injection: 1220 Time of stress imagin Administration Route: IV Administration Site: Right Arm Gated Stress SPECT was performed 60 minutes after stress injection. The images were gated to evaluate regional wall motion and calculate left ventricular ejection fraction. Stress only was performed in the Supine position. Nuclear Conclusion Nuclear Findings: negative for ischemia lvef 70% normal perfsuion scan ecg shows SR , and non specific ST changes BILATERAL LOWER EXTREMITY VENOUS DOPPLER ULTRASOUND CLINICAL HISTORY: Swelling and pain. TECHNIQUE: Grayscale ultrasound with compression, color Doppler flow imaging with pulsed duplex sonography of the bilateral lower extremity deep venous system from the common femoral veins through the popliteal veins is performed. COMPARISON: None FINDINGS: Right common femoral vein: Negative. Right greater saphenous vein: Negative. Right deep femoral vein: Negative. Right femoral vein: Negative. Right popliteal vein: Negative. Left common femoral vein: Negative. Left greater saphenous vein: Negative. Left deep femoral vein: Negative. Left femoral vein: Negative. Left popliteal vein: Negative. Other: Visualized bilateral popliteal trifurcation and posterior tibial veins demonstrate color flow. IMPRESSION: No sonographic evidence of deep venous thrombosis in either lower extremity at this time. EXAM: US PELVIC CLINICAL HISTORY: Anemia TECHNIQUE: Transabdominal and transvaginal ultrasound of the pelvis with color Doppler flow as clinically indicated. COMPARISON: None Findings: Uterus measures 7.5 x 4.0 x 6.0 cm in size. Multiple masses in the uterine fundus, the largest measures 3.5 x 3.7 x 2.9 cm. Endometrium not well visualized. Cervix appears grossly unremarkable. Bilateral ovaries not visualized. No free fluid in the cul-de-sac. Impression: 1. Multiple masses in the uterine fundus may reflect uterine fibroids; however, recommend further evaluation with contrast-enhanced MRI. 2. Bilateral ovaries not visualized. MRI Abdomen and pelvis, without and with IV Contrast Exam Date: 07/30/2024 12:21 PM Comparison: Ultrasound dated 07/29/2024 History: Liver cysts Technique: Multisequence multiplanar MRI images were obtained of the abomen and pelvis. Findings: Liver: Bilobar hepatic cysts are present measuring up to 1.6 cm. Spleen: Unremarkable. Pancreas: The pancreas is normal in appearance without focal lesions. Gallbladder and ducts: Gallbladder is normal in appearance. The cystic duct, right and left hepatic ducts, common hepatic duct, and common bile ducts are unremarkable. The pancreatic duct is within normal limits. Adrenal glands: Unremarkable. Kidneys: Normal enhancement without suspicious lesions or hydronephrosis. Visualized bowel: Moderate hiatal hernia. Vasculature: Unremarkable. Lymphadenopathy: No evidence for lymphadenopathy. Ascites: Absent. Musculoskeletal: Bone marrow signal is normal. Leiomyomatous uterus. Largest fibroid measures 2.6 cm. IMPRESSION: Leiomyomatous uterus. INDICATION: liver cyst TECHNIQUE: Multiple real-time sonographic images were obtained of the right upper quadrant. COMPARISON: None FINDINGS: Liver is normal in size measuring 15.4 cm and the echogenicity is within normal limits with no lesions identified. There is no intrahepatic or extrahepatic ductal dilatation with the common bile duct measuring 6 mm. Gallbladder appears unremarkable with no evidence of stones or wall thickening. Right kidney measures 9.8 cm and appears unremarkable with no hydronephrosis. Pancreas is obscured by overlying bowel gas. IMPRESSION: Unremarkable right upper quadrant sonogram. Condition at Discharge: Stable Final Diagnosis/Problems List Acute hypoxic respiratory failure likely due to segmental/subsegmental pulmonary embolism Acute chest pain Ruled out ACS Ruled out systolic heart failure Acute on chronic hypochromic, microcytic anemia Primary hypertension Active smoker Discharge Disposition: Home Discharge Instruct/Medications Diet: Cardiac 2g Na,low cholest Activity: No Restrictions, As Tolerated Follow Up/Referral: F/U with her PCP in 1 week Medications: Eliquis 10 mg b.i.d. for seven days and then 5 mg b.i.d. for at least six months Lisinopril 20 mg daily Hydrochlorothiazide 25 mg daily Ferrous sulfate iron 325 mg daily for 20 days Discharge Statement: "Patient was advised to return to the ER or call 911 if any headaches, dizziness, shortness of breath, chest pain, abdominal pain, bleeding, fevers, or worsening of medical condition. Patient was counseled about treatment plan, medications, possible side effects, patientverbalized understanding. All questions were answered to the best of my ability. This discharge took greater then 30 minutes in planning, reviewing documentation, counseling the patient, and discussing with other team members." ASSESSMENT ASSESSMENT Assessment Acute hypoxic respiratory failure likely due to segmental/subsegmental pulmonary embolism Acute chest pain Ruled out ACS Ruled out systolic heart failure Acute on chronic hypochromic, microcytic anemia Primary hypertension Active smoker Date of Service: Jul 30, 2024 Billing Provider: SANG DAVILA MD Common Visit Codes: 07813-[id number]/OBS DISCH DAY >30min LEIA SPEARS Jul 30, 2024 15:52 SANG DAVILA MD Jul 30, 2024 19:45
[2024-07-30] MEDS ORDERED: LISI20TA56 PO (15:56)
[2024-07-30] MEDS ORDERED: APIX5TAB PO (15:56)
[2024-07-30] MEDS ORDERED: FER325T PO (15:56)
[2024-07-30] MEDS ORDERED: HYDR12.59 PO (15:56)
[2024-07-31 08:07] LABS: AFP Serum Tumor Marker 4.8 ng/mL (0.0-9.2); Cancer Antigen (CA) 125 12.2 U/mL (0.0-38.1)
== END 2024-07-30 17:45 | disposition home or self-care (01) | DRG 175 ==
LOC: TELE-CENTR 04:16
PROVIDERS: ADMIT Internal Medicine; ATTEND Internal Medicine
DX: I26.93 Single subsegmental thrombotic pulmonary embolism without acute cor pulmonale (principal); J96.01 Acute respiratory failure with hypoxia; I10 Essential (primary) hypertension; E78.5 Hyperlipidemia, unspecified; F12.90 Cannabis use, unspecified, uncomplicated; F15.90 Other stimulant use, unspecified, uncomplicated; F17.210 Nicotine dependence, cigarettes, uncomplicated; E11.9 Type 2 diabetes mellitus without complications; E66.9 Obesity, unspecified; R00.0 Tachycardia, unspecified; D50.9 Iron deficiency anemia, unspecified; E55.9 Vitamin D deficiency, unspecified; Z98.891 History of uterine scar from previous surgery; Z79.899 Other long term (current) drug therapy; Z68.31 Body mass index [BMI] 31.0-31.9, adult; Z71.6 Tobacco abuse counseling; I26.99 Other pulmonary embolism without acute cor pulmonale
CPT/HCPCS: 36415; 71045; 71275; 72195; 74181; 76705; 76830; 76856; 78452; 80048; 80053; 80061; 80307; 81001; 82105; 82378; 82728; 83036; 83540; 83550; 83880; 84484; 85025; 85379; 86304; 93005; 93017; 93306; 93970; 97163; G0378; J1756

== ENCOUNTER 2024-08-03 09:49 | Emergency (ER) | payer OTHER, MEDICAID ==
[~2024-08-03] VITALS: Ht 167.6 cm; Wt 83.1 kg
[~2024-08-03 09:49] MED LIST: APIX5TAB PO; FER325T PO; HYDR12.59 PO; LISI20TA56 PO
[2024-08-03 10:06] VITALS: BP 123/71; RESP 18; TEMP 97.7; O2SAT 99
[2024-08-03 10:07] VITALS: PULSE 96
--- NOTE | 2024-08-03 10:32 | ED.PDOC ---
SOB-HPI HPI Comments 68 year old female presents to the ED with a chief complaint of shortness of breath onset today (08/03/24). Patient was discharged from [facility] 07/30/24, was admitted for PE. Patient went to follow up appointment with Dr. Bills, was sent to ED due to shortness of breath. PMHx PE. Denies chest pain, nausea, vomiting, diarrhea, abdominal pain, dizziness, headache. No other symptoms or modifying factors present at this time. 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 Family History Family History: Reviewed,noncontributory to illness, No family hx of Cancer, No family hx of DM, No family hx of Heart cj, No family hx of HTN, No family hx ofKidney cj, No family hx of Liver cj, No family hx of Lung cj, No family hx of Stroke Social History Smoker: Non-Smoker Alcohol: Denies ETOH Use Drugs: Denies Drug Use Lives In: Home Respiratory: reports: shortness of breath Physical Exam General Appearance: No Apparent Distress, Normal HEENT: Normal ENT Inspection, Pharynx Normal, TMs Normal Neck: Full Range of Motion, Non-Tender, Normal, Normal Inspection Respiratory: Chest Non-Tender, Lungs Clear, No Accessory Muscle Use, No Respiratory Distress, Normal Breath Sounds Cardiovascular: No Edema, No JVD, No Murmur, No Gallop, Normal Peripheral Pulses, Regular Rate/Rhythm Breast Exam: Deferred Gastrointestinal: No Organomegaly, Non Tender, No Pulsatile Mass, Normal Bowel Sounds, Soft Genitalia: Deferred Pelvic: Deferred Rectal: Deferred Extremities: No calf tenderness, Normal capillary refill, Normal inspection, Normal range of motion, Non-tender, No pedal edema Musculoskeletal : Apperance: Normal Neurologic: Alert, material yard clerk II-XII nml as Tested, No Motor Deficits, Normal Affect, Normal Mood, No Sensory Deficits Cerebellar Function: Normal Reflexes: Normal Skin: Dry, Normal Color, Warm Lymphatic: No Adenopathy Was a procedure done? Was a procedure done?: No Differential Dx Differential Diagnosis: CHF, COPD, Pneumonia X-Ray, Labs, Meds, VS Vital Signs Date Time Temp Pulse Resp B/P (MAP) Pulse Ox O2 Delivery O2 Flow Rate FiO2 08/03/24 10:07 96 08/03/24 10:06 97.7 104 18 123/71 (88) 99 97.7 Lab Test 08/03/24 11:13 08/03/24 10:15 Range/Units Troponin I High Sensitivity Pending 3 L </=34 ng/L White Blood Count 7.0 # 4.4-10.8 10^3/uL Red Blood Count 4.22 4.0-5.20 10^6/uL Hemoglobin 9.0 #L 12.2-16.2 g/dL Hematocrit 29.7 #L 36.0-46.0 % Mean Corpuscular Volume 70.6 L 80.0-100.0 fL Mean Corpuscular Hemoglobin 21.3 L 28.0-32.0 pg Mean Corpuscular Hemoglobin Concent 30.2 L 32.0-36.0 g/dL Red Cell Distribution Width 17.0 H 11.8-14.3 % Platelet Count 441 140-450 10^3/uL Mean Platelet Volume 7.4 6.9-10.8 fL Neutrophils (%) (Auto) 66.5 37.0-80.0 % Lymphocytes (%) (Auto) 22.0 10.0-50.0 % Monocytes (%) (Auto) 9.1 0.0-12.0 % Eosinophils (%) (Auto) 1.9 0.0-7.0 % Basophils (%) (Auto) 0.5 0.0-2.0 % Neutrophils # (Auto) 4.6 1.6-8.6 10 ^3/uL Lymphocytes # (Auto) 1.5 0.4-5.4 10 ^3/uL Monocytes # (Auto) 0.6 0-1.3 10 ^3/uL Eosinophils # (Auto) 0.1 0-0.8 10 ^3/uL Basophils # (Auto) 0 0-0.2 10 ^3/uL Nucleated Red Blood Cells 0.0 % Sodium Level 137 136-145 mmol/L Potassium Level 3.5 3.5-5.1 mmol/L Chloride Level 104 98-107 mmol/L Carbon Dioxide Level 22 20-31 mmol/L Anion Gap 11 5-15 Blood Urea Nitrogen 28 H 9-23 mg/dL Creatinine 1.42 #H 0.550-1.02 mg/dL Glomerular Filtration Rate Calc 41 >90 mL/min BUN/Creatinine Ratio 19.7 10.0-20.0 Serum Glucose 101 74-106 mg/dL Calcium Level 10.3 8.7-10.4 mg/dL B-Type Natriuretic Peptide 19.49 0-100 pg/mL [place] [id number] Ph: [phone] DIAGNOSTIC IMAGING Diagnostic Imaging Report : [id number] Signed PATIENT: MARCELLA MENON ACCT: [id number] UNIT: [id number] : 1955 LOC: ER ROOM / BED: / AGE / SEX: 68 / F ADM STATUS: REG ER SERVICE 1007 ORDERING PHYSICIAN: RUKHSANA KAPOOR MD PROCEDURE(s): CXRP - CHEST PORTABLE REASON: sob ORDER NUMBER(s): [id number], ACCESSION NUMBER(s): [id number] INDICATION: sob TECHNIQUE: Frontal view of the chest. COMPARISON: XY CHEST XRAY 1 VIEW on DOS: 07/29/24 FINDINGS: . The heart and mediastinal contours are grossly unremarkable. There is no evidence of pleural disease. The lungs are clear. The bony structures of the chest are intact without fracture. IMPRESSION: 1. No evidence of acute disease. ATED BY: EDGARD CHICAS MD DICTATED DATE/TIME: 08/03/24 1042 SIGNED BY: EDGARD CHICAS MD SIGNED DATE/TIME: 08/03/24 104 CC: Time of 1ST Reevaluation: 10:35 Reevaluation 1ST: Unchanged Patient Education/Counseling: Diagnosis, Treatment, Prognosis Family Education/Counseling: No Family Present Additional Information The following tests were ordered, and results were reviewed by me: BMP, CBC, TROP -x3, EKG -x3, XY CHEST, BNP, I reviewed and agreed with the following test results read by other providers: REUBEN CHEST I discussed treatment and results with medical personnel and: Patient Comprehensive systems review obtained and negative except for what is stated in the HPI. Departure 1 Departure Time of Disposition: 11:31 (Patient presented with chest pressure and shortness of breath that was concerning for possible STEMI, ACS, PE, Pneumonia, Muscle Strain, COPD, Dissection. Data: 1. I ordered and reviewed the result of at least 3 labs including a CBC, BMP, and Troponin. 2. I independently interpreted the following tests: EKG which shows sinus arrhythmia and Chest X-ray which shows benign chest.Risk:This patient has a high risk of morbidity due to further diagnostic testing or treatment and may suffer from an acute cardiac or respiratory disorder. Workup reveals concern for ACS and patient should be admitted for further workup and possible expert consultation. ) Impression: Primary Impression: Shortness of breath Additional Impression: Acute chest pain Disposition: ADMITTED INPATIENT Admit to: Med Surg Condition: Serious Critical Care Note Critical Care Time?: Yes Critical care comment: Acute chest pain Authorized and Performed by: Rukhsana Kapoor MD Total critical care time: Approximately 39 minutes Due to a high probability of clinically significant, life threatening deterioration, the patient required my highest level of preparedness to intervene emergently and I personally spent this critical care time directly and personally managing the patient. This critical care time included obtaining a history; examining the patient; pulse oximetry; ordering and review of studies; arranging urgent treatment with development of a management plan; evaluation of patient's response to treatment; frequent reassessment; and, discussions with other providers. This critical care time was performed to assess and manage the high probability of imminent, life-threatening deterioration that could result in multi-organ failure. It was exclusive of separately billable procedures and treating other patients and teaching time. Please see my other sections and the rest of the note for further information on patient assessment and treatment. Stability Stability form required: No Heart Score Heart Score: Heart Score Response (Comments) Value History Slightly Suspicious 0 EKG Repolarization Disturb 1 Age >65 2 Risk Factors >3 or Hx ASHD 2 Troponin 1-2 x's Normal limit 1 Total 6 I personally scribed for RUKHSANA KAPOOR MD ([email or web address]) on 08/03/24 at 10:32. Electronically submitted by Caitlin Robertson ([email or web address]). I personally scribed for RUKHSANA KAPOOR MD ([email or web address]) on 08/03/24 at 10:33. Electronically submitted by Caitlin Robertson ([email or web address]). I personally scribed for RUKHSANA KAPOOR MD ([email or web address]) on 08/03/24 at 11:24. Electronically submitted by Caitlin Robertson ([email or web address]). RUKHSANA KAPOOR MD Aug 03, 2024 10:32
[2024-08-03 10:33] LABS: Basophils # (auto) 0 10 ^3/uL (0-0.2); Basophils % (auto) 0.5 % (0.0-2.0); Eosinophils # (auto) 0.1 10 ^3/uL (0-0.8); Eosinophils % (auto) 1.9 % (0.0-7.0); Hematocrit 29.7 % (36.0-46.0); Lymphocytes # (auto) 1.5 10 ^3/uL (0.4-5.4); Mean Corpuscular Hemoglobin 21.3 pg (28.0-32.0); Mean Corpuscular Hgb Conc. 30.2 g/dL (32.0-36.0); Mean Corpuscular Volume 70.6 fL (80.0-100.0); Monocytes # (auto) 0.6 10 ^3/uL (0-1.3); Monocytes % (auto) 9.1 % (0.0-12.0); Neutrophils # (auto) 4.6 10 ^3/uL (1.6-8.6); Neutrophils % (auto) 66.5 % (37.0-80.0); Platelet Count (auto) 441 10^3/uL (140-450); Red Blood Cells 4.22 10^6/uL (4.0-5.20)
[2024-08-03 10:39] LABS: Chloride 104 mmol/L (98-107); Potassium 3.5 mmol/L (3.5-5.1); Sodium 137 mmol/L (136-145)
[2024-08-03 10:40] LABS: Anion Gap 11 (5-15); Calcium 10.3 mg/dL (8.7-10.4); Carbon Dioxide 22 mmol/L (20-31)
--- NOTE | 2024-08-03 10:44 | DVH ---
INDICATION: sob TECHNIQUE: Frontal view of the chest. COMPARISON: XY CHEST XRAY 1 VIEW on DOS: 07/29/24 FINDINGS: . The heart and mediastinal contours are grossly unremarkable. There is no evidence of pleural disea se. The lungs are clear. The bony structures of the chest are intact without fracture. IMPRESSION: 1. No evidence of acute disease.
[2024-08-03 10:45] LABS: BUN/Creatinine Ratio 19.7 (10.0-20.0); Glucose 101 mg/dL (74-106)
[2024-08-03 10:51] LABS: Blood Urea Nitrogen 28 mg/dL (9-23)
--- NOTE | 2024-08-03 23:09 | ECG ---
[facility] Test Date: 2024-08-03 Test Time: 10:07:46 Pat Name: MARCELLA MENNO Department: ER Room: Gender: F Gold Reclaimer: BRAYDEN : 1955 Requested By: RUKHSANA KAPOOR Order Number: [id number] Reading MD: Live Garces Measurements Intervals [place] Rate: 96 P: 75 MS: 119 QRS: 62 QRSD: 77 T: 59 QT: 359 QTc: 454 Interpretive Statements Sinus rhythm Borderline short MS interval Abnormal R-wave progression, early transition Borderline ST depression, diffuse leads Baseline wander in lead(s) II,III,aVF Electronically Signed On 08-04-2024 21:06:28 PDT by Live Garces Please click the below link to view image of tracing.
== END 2024-08-03 16:42 | disposition left against medical advice (07) ==
LOC: ER 09:49
DX: R06.02 Shortness of breath (principal); R07.89 Other chest pain
CPT/HCPCS: 36415; 71045; 80048; 83880; 84484; 85025; 93005

== ENCOUNTER 2024-09-29 14:44 | Outpatient (CLI) | payer OTHER, MEDICAID ==
[2024-09-29 15:48] LABS: Potassium 4.2 mmol/L (3.5-5.1)
[2024-09-29 15:50] LABS: Calcium 10.4 mg/dL (8.7-10.4)
[2024-09-29 15:54] LABS: BUN/Creatinine Ratio 17.5 (10.0-20.0)
[2024-09-29 15:55] LABS: Albumin 4.8 g/dL (3.2-4.8)
[2024-09-29 15:57] LABS: Phosphorus 2.9 mg/dL (2.4-5.1)
== END 2024-09-29 17:00 | disposition home or self-care (01) ==
LOC: LAB 14:44
PROVIDERS: ATTEND Internal Medicine
DX: I13.0 Hypertensive heart and chronic kidney disease with heart failure and stage 1 through stage 4 chronic kidney disease, or unspecified chronic kidney disease (principal); E11.22 Type 2 diabetes mellitus with diabetic chronic kidney disease; N18.32 Chronic kidney disease, stage 3b; I50.9 Heart failure, unspecified
CPT/HCPCS: 36415; 80069

== ENCOUNTER 2024-10-05 14:44 | Outpatient (CLI) | payer OTHER, MEDICAID | END 2024-10-05 17:00 | disposition home or self-care (01) | LOC: LAB 14:44 | PROVIDERS: ATTEND Student in an Organized Health Care Education/Training Program | DX: D64.9 Anemia, unspecified (principal); Z86.711 Personal history of pulmonary embolism | CPT/HCPCS: 82270 ==

== ENCOUNTER 2024-10-12 14:39 | Outpatient (CLI) | payer OTHER, MEDICAID ==
[2024-10-12 16:06] LABS: Basophils # (auto) 0 10 ^3/uL (0-0.2); Basophils % (auto) 0.4 % (0.0-2.0); Eosinophils # (auto) 0 10 ^3/uL (0-0.8); Eosinophils % (auto) 1.2 % (0.0-7.0); Hemoglobin 12.4 g/dL (12.2-16.2); Lymphocytes # (auto) 1.1 10 ^3/uL (0.4-5.4); Lymphocytes % (auto) 35.9 % (10.0-50.0); Mean Corpuscular Hemoglobin 26.1 pg (28.0-32.0); Mean Corpuscular Hgb Conc. 32.6 g/dL (32.0-36.0); Mean Corpuscular Volume 80.1 fL (80.0-100.0); Monocytes # (auto) 0.3 10 ^3/uL (0-1.3); Monocytes % (auto) 9.7 % (0.0-12.0); Neutrophils # (auto) 1.6 10 ^3/uL (1.6-8.6); Neutrophils % (auto) 52.8 % (37.0-80.0); Nucleated Red Blood Cells % 0.1 %; Platelet Count (auto) 220 10^3/uL (140-450); Red Blood Cells 4.74 10^6/uL (4.0-5.20)
[2024-10-12 16:07] LABS: Red Cell Distribution Width 22.1 % (11.8-14.3)
[2024-10-12 16:38] LABS: % Iron Saturation 26.3 % (15-50); Alanine Aminotransferase 18 U/L (7-40); Alkaline Phosphatase 81 U/L (46-116); Anion Gap 10 (5-15); Aspartate Aminotransferase 21 U/L (<34); BUN/Creatinine Ratio 14.3 (10.0-20.0); Blood Urea Nitrogen 15 mg/dL (9-23); Calcium 9.9 mg/dL (8.7-10.4); Carbon Dioxide 27 mmol/L (20-31); Chloride 102 mmol/L (98-107); Glucose 89 mg/dL (74-106); Potassium 3.9 mmol/L (3.5-5.1); Sodium 139 mmol/L (136-145)
[2024-10-12 16:39] LABS: Bilirubin, Total 0.4 mg/dL (0.2-1.0)
[2024-10-12 16:40] LABS: Albumin 4.8 g/dL (3.2-4.8); Ferritin 13.8 ng/mL (10-291); Folate (Folic Acid) 12.1 ng/mL (>5.38)
[2024-10-13 08:07] LABS: Immunoglobulin A 98 mg/dL (87-352); Immunoglobulin G, Serum 601 mg/dL (586-1602); Immunoglobulin M 85 mg/dL (26-217)
== END 2024-10-12 17:00 | disposition home or self-care (01) ==
LOC: LAB 14:39
PROVIDERS: ATTEND Student in an Organized Health Care Education/Training Program
DX: D64.9 Anemia, unspecified (principal); Z86.711 Personal history of pulmonary embolism
CPT/HCPCS: 36415; 80053; 82607; 82728; 82746; 82784; 83521; 83540; 83550; 83615; 85025; 85045; 86334

== ENCOUNTER 2024-12-16 03:28 | Emergency (ER) | payer OTHER, MEDICAID ==
[~2024-12-16] VITALS: Ht 167.6 cm; Wt 76.8 kg
[2024-12-16 04:13] VITALS: BP 137/83; PULSE 102; RESP 18; TEMP 98.1; O2SAT 99
--- NOTE | 2024-12-16 04:15 | ED.PDOC ---
Back pain HPI HPI Comments 69-year-old female presents to ER with complaints of back pain x2 months. Patient reports that she has been experiencing unprovoked lower back pain x2 months with associated foul and "dark" discoloration to urine x2 weeks. She rates her current pain a 7/10 and presents to ER ambulatory on arrival, with steady gait, in no distress. States that she been taking tramadol for her pain without relief. Denies fever, body aches, chills, night sweats, fatigue, weight changes, chest pain, abdominal/pelvic pain, numbness/tingling, flank pain, further changes in urination or any further symptoms/complaints Chief Complaint: Back Pain Time Seen by MD: 03:48 Primary Care Provider: UNKNOWN Reviewed Notes: Nurses Notes, Medications, Allergies Allergies: Coded Allergies: NO KNOWN ALLERGIES (Unverified , 07/29/24) Home Meds Active Scripts Sulfamethoxazole W/Trimethopri (Bactrim Ds Tablet) 1 Tab Tb, 1 TAB PO BID for 7 Days, #14 TAB 0 Refills Prov:HERNAN DRISCOLL 12/16/24 Acetaminophen (Acetaminophen) 500 Mg Tab, 500 MG PO Q4HPRN, #30 TAB 0 Refills Prov:HERNAN DRISCOLL 12/16/24 Ferrous Sulfate (FERROUS SULFATE) 325 Mg Tb, 1 TAB PO DAILY for 20 Days, #20 TAB 3 Refills Prov:LEIA SPEARS 07/30/24 Hydrochlorothiazide (Hydrochlorothiazide) 12.5 Mg Cap, 1 CAP PO DAILY for 30 Days, #30 CAP 5 Refills Prov:LEIA SPEARS 07/30/24 Lisinopril (Lisinopril) 20 Mg Tab, 1 TAB PO DAILY for 30 Days, #30 TAB 5 Refills Prov:LEIA SPEARS 07/30/24 Apixaban Base (ELIQUIS) 5 Mg Tab, 5 MG PO BID for 90 Days, #180 TAB Prov:LEIA SPEARS 07/30/24 Apixaban Base (ELIQUIS) 5 Mg Tab, 10 MG PO BID for 7 Days, #14 TAB 10MG BID X 7 DAYS THEN 5MG PO BID FOR AT LEAST 6 MONTHS FOR DVT/PE TREATMENT Prov:LEIA SPEARS 07/30/24 Information Source: Patient Mode of Arrival: Ambulatory Past Medical History PAST MEDICAL HISTORY: Anemia, CHF, DM Past Medical History (Other): CKD 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 History Family History Family History: Unknown Social History Smoker: Non-Smoker Alcohol: Denies ETOH Use Drugs: Denies Drug Use Lives In: Home Constitutional: denies: chills, diaphoresis, fatigue, fever, malaise, sweats, weakness, others EENTM: denies: blurred vision, double vision, ear bleeding, ear discharge, ear drainage, ear pain, ear ringing, eye pain, eye redness, hearing loss, mouth pain, mouth swelling, nasal discharge, nose bleeding, nose congestion, nose pain, photophobia, tearing, throat pain, throat swelling, voice changes, others Respiratory: denies: cough, hemoptysis, orthopnea, SOB at rest, shortness of breath, SOB with excertion, stridor, wheezing, others Cardiovascular: denies: chest pain, dizzy spells, diaphoresis, Dyspnea on exertion, edema, irregular heart beat, left arm pain, lightheadedness, palpitations, PND, syncope, others Gastrointestinal: denies: abdomen distended, abdominal pain, blood streaked bowels, constipated, diarrhea, dysphagia, difficulty swallowing, hematemesis, melena, nausea, poor appetite, poor fluid intake, rectal bleeding, rectal pain, vomiting, others Genitourinary: reports: others (As stated in HPI) Neurological: denies: dizziness, fainting, headache, left sided numbness, left sided weakness, numbness, paresthesia, pre-existing deficit, right sided numbness, right sided weakness, seizure, speech problems, tingling, tremors, weakness, others Musculoskeletal: reports: others (As stated in HPI); denies: back pain, gout, joint pain, joint swelling, muscle pain, muscle stiffness, neck pain Integumetry: denies: bruises, change in color, change in hair/nails, dryness, laceration, lesions, lumps, rash, wounds, others Allergic/Immunocompromised: denies: Difficulty Healing, Frequent Infections, Hives, Itching, others Hematologic/Lymphatic: denies: anemia, blood clots, easy bleeding, easy bruising, swollen glands, others Endocrine: denies: excessive hunger, excessive sweating, excessive thirst, excessive urination, flushing, intolerance to cold, intolerance to heat, unexplained weight gain, unexplained weight loss, others Psychiatric: denies: anxiety, bipolar disorder, depression, hopeless, panic disorder, schizophrenia, sleepless, suicidal, others Physical Exam General Appearance: No Apparent Distress HEENT: PERRL/EOMI Neck: Full Range of Motion, Non-Tender, Normal Respiratory: Chest Non-Tender, Lungs Clear, No Accessory Muscle Use, No Respiratory Distress, Normal Breath Sounds Cardiovascular: No Murmur, No Gallop, Regular Rate/Rhythm Breast Exam: Deferred Gastrointestinal: Non Tender, No Pulsatile Mass, Soft Genitalia: Deferred Pelvic: Deferred Rectal: Deferred Extremities: Normal capillary refill, Normal range of motion Musculoskeletal : Extremity Location: Back (Slight TTP to bilateral lower lumbar region noted. 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 Was a procedure done?: No Sedation Sedation?: No Back Pain Differential Dx Differential Diagnosis: AAA, Fracture, Urolithiasis X-Ray, Labs, Meds, VS Vital Signs Date Time Temp Pulse Resp B/P (MAP) Pulse Ox O2 Delivery O2 Flow Rate FiO2 12/16/24 04:13 98.1 102 18 137/83 (101) 99 98.1 12/16/24 04:13 102 18 99 Room Air 12/16/24 03:31 98.1 102 18 137/83 99 98.1 Lab Test 12/16/24 04:00 Range/Units Urine Color Yellow Yellow Urine Clarity Clear Clear Urine pH 5.0 5.0-9.0 Urine Specific [place] 1.026 1.001-1.035 Urine Protein Negative Negative Urine Ketones Trace Negative Urine Blood Negative Negative /uL Urine Nitrite Negative Negative Urine Bilirubin Negative Negative Urine Urobilinogen 2 H Negative mg/dL Urine Leukocyte Esterase 3+ Negative /uL Urine RBC None seen 0 - 4 /hpf Urine Microscopic WBC 8 H 0-5 /HPF Urine Squamous Epithelial Cells Few <5 /hpf Urine Bacteria None seen None Seen /hpf Urine Hyaline Casts Few 0 - 2 /lpf Urine Mucus Few None Seen Urine Glucose Normal Normal mg/dL Current Medications Medications (Trade) Dose Ordered Sig/Zac Route Start Time Stop Time Status Last Admin Acetaminophen (Tylenol Tablet) 650 mg ONCE ONCE PO 12/16/24 04:15 12/16/24 04:16 DC 12/16/24 04:19 PATIENT: MARCELLA MENON LACCT: [id number]: [id number] : 1955 LOC: ER ROOM / BED: / AGE / SEX: 69 / F ADM STATUS: REG ER SERVICE 8 ORDERING PHYSICIAN: HERNAN DRISCOLL PROCEDURE(s): LUMB2 - LUMBAR SPINE 3 VIEW REASON: lumbar back pain ORDER NUMBER(s): [id number], ACCESSION NUMBER(s): [id number] INDICATION: lumbar back pain TECHNIQUE: Frontal, lateral and coned-down lateral views of the lumbar spine were obtained. COMPARISON: None FINDINGS: Vertebral body heights and disc spaces are well maintained. No acute fracture. Alignment is maintained. IMPRESSION: 1. No fracture or subluxation of the lumbar spine. ATED BY: ANAI SÁNCHEZ MD DICTATED DATE/TIME: 12/16/24422 SIGNED BY: ANAI SÁNCHEZ MD SIGNED DATE/TIME: 12/16/24422 CC: Urinalysis reviewed-urine leukocyte esterase 3+, urine blood negative, urine nitrites negative Lumbar spine x-ray reviewed Tylenol 650 mg p.o. ordered Rocephin 1 g IM ordered Patient had improvement in symptoms and in no distress prior to discharge Advised to drink plenty of fluids Advised to follow up with PCP in 1-2 days Patient verbalized understanding and agreeable with current plan of care Advised to return to ER immediately if symptoms worsen Images Reviewed?: Images reviewed and evaluated by me Time of 1ST Reevaluation: 04:12 Reevaluation 1ST: N/A Patient Education/Counseling: Diagnosis, Treatment, Prognosis, Need For Follow Up Family Education/Counseling: No Family Present SEPSIS Sepsis Screen Date sepsis recognized/suspect: Dec 16, 2024 Time Sepsis recognized/suspect: 333 Recent Procedure: No On Antibiotic Therapy: No Respiratory Rate >20: No Heart Rate >90: Yes Temp<36 C (96.8 F) or >38.3 C: No SBP <90 or MAP <65 mmHG: No New Acute Mental Status Change: No Is the patient on CPAP, BIPAP,: No Physician Orders Lumbar Spine 3 View (12/16/24 03:49) Vital Signs Date Time Temp Pulse Resp B/P (MAP) Pulse Ox O2 Delivery O2 Flow Rate FiO2 12/16/24 04:13 98.1 102 18 137/83 (101) 99 98.1 12/16/24 04:13 102 18 99 Room Air 12/16/24 03:31 98.1 102 18 137/83 99 98.1 Medications Medications Dose Ordered Sig/Zac Route Start Time Stop Time Status Last Admin Dose Admin Acetaminophen 650 mg ONCE ONCE PO 12/16/24 04:15 12/16/24 04:16 DC 12/16/24 04:19 Departure 1 Departure Time of Disposition: 04:39 Impression: Primary Impression: UTI (urinary tract infection) Qualified Codes: N30.01 - Acute cystitis with hematuria Disposition: HOME / SELF CARE / HOMELESS Condition: Stable e-Prescriptions Sulfamethoxazole W/Trimethopri (Bactrim Ds Tablet) 1 Tab Tb 1 TAB PO BID for 7 Days, #14 TAB 0 Refills Prov: HERNAN DRISCOLL 12/16/24 Acetaminophen (Acetaminophen) 500 Mg Tab 500 MG PO Q4HPRN, #30 TAB 0 Refills Prov: HERNAN DRISCOLL 12/16/24 Discharged With: Self Critical Care Note Critical Care Time?: No Stability Stability form required: No Heart Score Heart Score: Heart Score Response (Comments) Value History N/A 0 EKG N/A 0 Age N/A 0 Risk Factors N/A 0 Troponin N/A 0 Total 0 HERNAN DRISCOLL Dec 16, 2024 04:15
[2024-12-16] MEDS: ACETAMINOPHEN 325 MG TAB PO ONE (04:19)
[2024-12-16] MEDS ORDERED: BACDST PO (04:21)
[2024-12-16] MEDS ORDERED: ACET500T58 PO (04:21)
--- NOTE | 2024-12-16 04:25 | DVH ---
INDICATION: lumbar back pain TECHNIQUE: Frontal, lateral and coned-down lateral views of the lumbar spine were obtained. COMPARISON: None FINDINGS: Vertebral body heights and disc spaces are well maintained. No acute fracture. Alignment i s maintained. IMPRESSION: 1. No fracture or subluxation of the lumbar spine.
[2024-12-16 04:31] LABS: Urine Protein, UAD Negative (Negative)
[2024-12-16] MEDS: cefTRIAXone SOD 1,000 MG VL IM ONE (05:07)
== END 2024-12-16 05:15 | disposition home or self-care (01) ==
LOC: ER 03:28
DX: N39.0 Urinary tract infection, site not specified (principal); E11.22 Type 2 diabetes mellitus with diabetic chronic kidney disease; I50.9 Heart failure, unspecified; N18.9 Chronic kidney disease, unspecified; Z79.899 Other long term (current) drug therapy
CPT/HCPCS: 72100; 81001; 96372; 99284; J0696

== ENCOUNTER 2025-01-12 13:41 | Outpatient (CLI) | payer OTHER, MEDICAID ==
[~2025-01-12 13:41] MED LIST changes: +ACET500T58 PO; +BACDST PO
[2025-01-12 14:44] LABS: Urine Protein, UAD Negative (Negative)
[2025-01-12 15:04] LABS: Hematocrit 40.6 % (36.0-46.0); Hemoglobin 13.4 g/dL (12.2-16.2); Mean Corpuscular Hemoglobin 29.7 pg (28.0-32.0); Mean Corpuscular Volume 89.8 fL (80.0-100.0); Nucleated Red Blood Cells % 0.1 %
[2025-01-12 15:32] LABS: Alanine Aminotransferase 13 U/L (7-40); Albumin 4.6 g/dL (3.2-4.8); Alkaline Phosphatase 54 U/L (46-116); Anion Gap 9 (5-15); BUN/Creatinine Ratio 13.6 (10.0-20.0); Blood Urea Nitrogen 16 mg/dL (9-23); Calcium 9.7 mg/dL (8.7-10.4); Carbon Dioxide 26 mmol/L (20-31); Chloride 102 mmol/L (98-107); Glucose 89 mg/dL (74-106); Potassium 4.1 mmol/L (3.5-5.1); Sodium 137 mmol/L (136-145); Total Protein 6.9 g/dL (5.7-8.2); Triglycerides 116 mg/dL (< 150)
[2025-01-12 15:33] LABS: Bilirubin, Total 0.7 mg/dL (0.2-1.0); Cholesterol 178 mg/dL (< 200); HDL Cholesterol 51 mg/dL (40-59)
[2025-01-12 16:04] LABS: Uric Acid 7.5 mg/dL (3.1-7.8)
== END 2025-01-12 17:00 | disposition home or self-care (01) ==
LOC: LAB 13:41
PROVIDERS: ATTEND Internal Medicine
DX: E78.49 Other hyperlipidemia (principal); E61.2 Magnesium deficiency; E79.0 Hyperuricemia without signs of inflammatory arthritis and tophaceous disease; E55.9 Vitamin D deficiency, unspecified; D51.9 Vitamin B12 deficiency anemia, unspecified; R82.79 Other abnormal findings on microbiological examination of urine; R82.90 Unspecified abnormal findings in urine; R82.998 Other abnormal findings in urine; R94.6 Abnormal results of thyroid function studies; R68.89 Other general symptoms and signs; R73.09 Other abnormal glucose
CPT/HCPCS: 36415; 80053; 80061; 81001; 82306; 82607; 82746; 83036; 84443; 84550; 85025; 87086

== ENCOUNTER → 2025-03-01 | Outpatient (CLI) | payer OTHER, MEDICAID ==
[2025-03-01 14:34] LABS: Hematocrit 41.9 % (36.0-46.0); Hemoglobin 14.1 g/dL (12.2-16.2); Mean Corpuscular Hemoglobin 29.7 pg (28.0-32.0); Mean Corpuscular Volume 88.3 fL (80.0-100.0); Nucleated Red Blood Cells % 0.2 %
[2025-03-01 14:51] LABS: Alanine Aminotransferase 19 U/L (7-40); Albumin 4.5 g/dL (3.2-4.8); Alkaline Phosphatase 78 U/L (46-116); Anion Gap 11 (5-15); Bilirubin, Total 1.0 mg/dL (0.2-1.0); Blood Urea Nitrogen 12 mg/dL (9-23); Calcium 10.0 mg/dL (8.7-10.4); Carbon Dioxide 28 mmol/L (20-31); Chloride 104 mmol/L (98-107); Glucose 84 mg/dL (74-106); Potassium 4.7 mmol/L (3.5-5.1); Sodium 143 mmol/L (136-145); Total Protein 6.8 g/dL (5.7-8.2)
[2025-03-01 15:16] LABS: BUN/Creatinine Ratio 11.8 (10.0-20.0)
[2025-03-01 15:37] LABS: Urine Protein, UAD Negative (Negative)
[2025-03-01 16:40] LABS: Microalb/Creat Ratio, Urine 4.0
== END | disposition home or self-care (01) ==
LOC: LAB 14:13
PROVIDERS: ATTEND Internal Medicine Nephrology
DX: E11.22 Type 2 diabetes mellitus with diabetic chronic kidney disease (principal); N18.30 Chronic kidney disease, stage 3 unspecified; E11.21 Type 2 diabetes mellitus with diabetic nephropathy; E21.3 Hyperparathyroidism, unspecified; E55.9 Vitamin D deficiency, unspecified; D63.1 Anemia in chronic kidney disease; N39.0 Urinary tract infection, site not specified; M10.9 Gout, unspecified; R80.9 Proteinuria, unspecified
CPT/HCPCS: 36415; 80053; 81001; 82043; 82570; 83036; 83970; 85025